=== PATIENT | female | born 1945 | race Caucasian/White ===

== ENCOUNTER 2018-03-29 20:13 | Emergency (ER) | payer MEDICARE ==
[2018-03-29] MEDS ORDERED: Adacel (T-DAP) 0.5 ML VIAL ONE (20:26)
[2018-03-29] MEDS ORDERED: Lidocaine 1% w/Epinephrine 1:100K 20 ML VIAL ONE (20:28)
[2018-03-29] MEDS ORDERED: Water For Inject, Bacteriostat 30 ML ONE (21:14)
[2018-03-29] MEDS ORDERED: CEFAZOLIN 1 GM VIAL ONE (21:14)
--- NOTE | 2018-03-29 21:19 | RAD ---
THREE VIEWS OF THE LEFT MIDDLE FINGER: 03/29/18 COMPARISON: None. HISTORY: Laceration to the left finger 30 minutes ago in the closet door. FINDINGS: Three views of the left middle finger and ring fingers shows fractures of the tuft of the middle and ring fingers. No radiopaque foreign body is seen. Overlying soft tissue swelling is seen. IMPRESSION: Tuft fractures of the distal phalanges of the middle and ring fingers. POS: C
[2018-03-29] MEDS ORDERED: HYDROcodone/Acetaminophen 5/325 mg Tablet ONE (22:06)
== END 2018-03-29 22:35 | disposition home or self-care (01) ==
LOC: ERS 20:13
DX: S62.633B Displaced fracture of distal phalanx of left middle finger, initial encounter for open fracture (principal); S62.635B Displaced fracture of distal phalanx of left ring finger, initial encounter for open fracture; E03.9 Hypothyroidism, unspecified; Z87.891 Personal history of nicotine dependence; Z79.899 Other long term (current) drug therapy; W23.0XXA Caught, crushed, jammed, or pinched between moving objects, initial encounter
CPT/HCPCS: 11750; 12001; 90471; 90715; 96372; J0690; J2001

== ENCOUNTER 2021-03-02 14:47 | Outpatient (CLI) | payer MEDICARE | END 2021-03-02 14:48 | disposition home or self-care (01) | LOC: BICMAMMO 14:47 | PROVIDERS: ATTEND Family Medicine | DX: Z12.31 Encounter for screening mammogram for malignant neoplasm of breast (principal); Z98.82 Breast implant status; Z85.828 Personal history of other malignant neoplasm of skin; Z80.3 Family history of malignant neoplasm of breast | CPT/HCPCS: 77063; 77067 ==

== ENCOUNTER 2022-03-24 15:22 | Outpatient (CLI) | payer MEDICARE | END 2022-03-24 15:23 | disposition home or self-care (01) | LOC: BICMAMMO 15:22 | PROVIDERS: ATTEND Family Medicine | DX: Z12.31 Encounter for screening mammogram for malignant neoplasm of breast (principal); R92.2 Inconclusive mammogram; Z98.82 Breast implant status; Z85.828 Personal history of other malignant neoplasm of skin; Z80.3 Family history of malignant neoplasm of breast | CPT/HCPCS: 77063; 77067 ==

== ENCOUNTER 2022-03-29 08:01 | Outpatient (CLI) | payer MEDICARE | END 2022-03-29 08:02 | disposition home or self-care (01) | LOC: BICULT 08:01 | PROVIDERS: ATTEND Family Medicine | DX: R92.2 Inconclusive mammogram (principal); N63.25 Unspecified lump in the left breast, overlapping quadrants ==

== ENCOUNTER 2023-01-03 13:53 | Outpatient (CLI) | payer MEDICARE | END 2023-01-03 13:54 | disposition home or self-care (01) | LOC: RAD 13:53 | PROVIDERS: ATTEND Internal Medicine Critical Care Medicine | DX: R06.00 Dyspnea, unspecified (principal) | CPT/HCPCS: 71046 ==